=== PATIENT | male | born 1965 | race Caucasian/White ===

== ENCOUNTER 2021-11-14 08:44 | Day surgery (SDC) | payer OTHER, SELFPAY ==
[2021-11-14] VITALS (9 sets, daily range): BP systolic 128–165; BP diastolic 80–95; PULSE 52–75; RESP 15–21; TEMP 36.6–37.1; O2SAT 97–100
[2021-11-14] MEDS: sodium chloride 0.9% 1,000 ML 30 ML IV (09:43)
--- NOTE | 2021-11-14 09:57 | W.PM.OPSUD ---
Surgery/Procedure H&P Update DATE OF PROCEDURE: November 14, 2021 DATE H&P PERFORMED: 11/01/21 PREOP DIAGNOSIS: right inguinal hernia PLANNED PROCEDURE: Operation Date: 11/14/21 10:15 Proposed Procedures p lap right inguinal hernia repair with possible mesh [id number],K40.90(Right) - Ozzie Dorantes DO
[2021-11-14] MEDS: vancomycin 1,000 MG in sodium chloride 0.9% 250 ML 250 MG IV (10:17)
--- NOTE | 2021-11-14 11:30 | PM.OP ---
Operative Report Date of procedure: November 14, 2021 Pre-op diagnosis: Preop Diagnosis right inguinal hernia Post-op diagnosis: same Procedure done: Laparoscopic repair of right inguinal hernia with mesh Implants: Right extra-large 3D Bard mesh Surgeon: Dr. Ozzie Dorantes DO Anesthesia: General Estimated blood loss (mL): 5 Complications: None apparent Brief History: This is a very pleasant 56-year-old gentleman who came into the office with a right inguinal hernia. Repair was indicated. The risks and benefits were explained and documented. Procedure: Patient was wheeled into the operative room and placed on the OR table in a supine position. Abdomen was inspected prepped and draped in usual sterile fashion. Time-out was performed and all present were in agreement. A 15 blade scalpel was used to make 1.2 centimeter incision infraumbilically. Combination of sharp and blunt dissection was performed down to the anterior rectus sheath which was opened sharply. The dissecting balloon was then inserted into the space of Retzius and blown up. We put the camera into the port and identified that we were in the correct space. I then placed 2 5 millimeter trocars suprapubically in the midline. I then used endokitners to bluntly dissect in the space of Retzius out laterally. A direct and indirect inguinal hernia was identified on the right. Blunt dissection was performed to dissect down the hernia sac until the vas deferens dove medially. An extra-large right inguinal mesh was then placed into the space of Retzius. The mesh was unrolled and tacked once medially at the pubic bone. The mesh laid out nicely over the spermatic cord. Photos were taken of the mesh laid out and the hernia sac laid underneath the mesh. I watched the hernia sac remained in place as insufflation was removed. Incisions were closed with 4 O Vicryl in a subcuticular interrupted fashion. Skin glue was applied. Patient tolerated the procedure well.
--- NOTE | 2021-11-14 11:50 | PC.NURSE ---
WHEN I WENT TO REMOVE THE LINDSEY THERE WAS SOME BLOOD IN THE LINDSEY TUBE. I WENT AND NOTIFIED DR. HOLLOWAY. HE CAME TO THE ROOM TO EXAMINE THE PT. WE THEN FLUSHED THE LINDSEY WITH 30ML OF NS AND THE RETURN FLUID WAS CLEAR. HE SAID TO GO AHEAD WITH REMOVING THE LINDSEY.
--- NOTE | 2021-11-14 12:03 | SUR.PHASEI ---
1147 PT TO PACU 5 PT AWAKES TO VOICE, PT REPOSTIONED SELF TO RT SIDE, WARM BLANKETS TO PT X 4 PT MONITOR SR TO SB NO ECTOPY NOTED VSS IV TO LT FA #20 PATENT TO NS 500ML AT KVO RATE PER GRAVITY, ID BRACELET TO LT WRIST PT ID'D WITH 2 IDENTIFIERS. BILAT SCDS ON ABDOMEN SOFT WITH 3 SITES WITH SKIN GLUE. D/I
--- NOTE | 2021-11-14 12:10 | P.PCN_ITS ---
PACU note Narrative: VSS, Good respiratory effort, report to STEAM PLANT OPERATOR Exam: awake
--- NOTE | 2021-11-14 12:10 | PM.PACU ---
PACU note Narrative: VSS, Good respiratory effort, report to LABEL STAMPER Exam: awake
--- NOTE | 2021-11-14 12:47 | ANES.PREANE2 ---
Pre-Anesthetic Assessment Height/Weight: Height 1.85 m Weight 78.018 kg Temp Pulse Resp BP Pulse Ox O2 Del Method O2 Flow Rate 98.2 F 52 L 16 133/80 99 8 11/14/21 12:12 11/14/21 12:27 11/14/21 12:27 11/14/21 12:27 11/14/21 12:27 11/14/21 12:27 11/14/21 11:55 Preop Diagnosis: right inguinal hernia Operation Date: 11/14/21 10:15 Proposed Procedures p lap right inguinal hernia repair with possible mesh [id number],K40.90(Right) - Ozzie Dorantes DO Familial anesthetic complications: none Was Beta Edwin taken within 24 hours: N/A Was Clonidine taken within 24 hours: N/A Last intake: Intake Last Liquid Date 11/13/21 Last Liquid Time 19:00 Last Solid Date 11/13/21 Last Solid Time 19:00 Social No alcohol and No tobacco Exam alert, oriented x 3, clear to auscultation bilaterally and regular rate & rhythm Airway Submandibular: within normal limits Cervical ROM: within normal limits Mallampati: Class II Dentition: full History/ROS No significant history except as noted Anesthetic Plan ASA status: 1 Anesthesia: General Medications/Allergies Home Medications Medication Instructions Recorded Confirmed Last Taken Type hydrocodone 7.5 mg-acetaminophen 1 tab PO Q6H PRN pain #20 tabs 11/14/21 Unknown Rx 325 mg tablet Allergies Allergy/AdvReac Type Severity Reaction Status Date / Time penicillin G Allergy ALGY-Hives Verified 11/14/21 09:05 Current Medications Generic Name Dose Route Start Last Admin Trade Name Freq PRN Reason Stop Dose Admin Sodium Chloride 1,000 mls @ 30 mls/hr 11/14/21 09:00 11/14/21 12:30 Sodium Chloride 0.9% IV 11/15/21 08:59 Infused .Q24H SHA Infusion PFSH Anesthesia Medical History (Updated 11/01/21 @ 14:25 by Ozzie Dorantes DO) Right inguinal hernia Surgical History Hx of hernia repair Social History Smoking and tobacco status: never smoked Data Anesthesia Cardiac Studies: No Data to Display
[2021-11-14] MEDS: HYDROcodone-acetaminophen 7.5-325 mg Tablet 1 TAB PO (12:54)
--- NOTE | 2021-11-14 13:08 | PC.NURSE ---
Educated pt if he is unable to urinate within renée hours he should go to the ED. Pt voiced understanding.
--- NOTE | 2021-11-14 15:54 | ANE.PACU2 ---
Inpatient post-anesthesia follow up: Airway intact: Yes Vital signs: Temperature 98.2 F Pulse Rate 52 Respiratory Rate 16 Blood Pressure 128/88 Pulse Oximetry 99 Oxygen Delivery Me thod Room Air Oxygen Flow Rate 8 Fraction of Inspir ed Oxygen Hydration adequate: Yes Nausea and vomiting: No Pain level: 3 Mental status: Baseline
== END 2021-11-14 13:00 | disposition home or self-care (01) ==
PROVIDERS: Visit Provider Surgery
PROC: (CPT 49650; principal; 2021-11-14 10:15)
DX: K40.90 Unilateral inguinal hernia, without obstruction or gangrene, not specified as recurrent (principal)
CPT/HCPCS: 49650; 51702; C1781; J2405; J2704; J2710; J3010; J3370; J3490; J7030; J7050

== ENCOUNTER 2021-11-14 20:30 | Emergency (ER) | payer OTHER, SELFPAY ==
[2021-11-14 20:32] VITALS: BP 141/87; PULSE 60; RESP 18; TEMP 36.7; O2SAT 98; BMI 23.1
--- NOTE | 2021-11-14 22:32 | ED_ITS ---
HPI - Male Genitourinary General: Chief complaint: Urogenital-Male Stated complaint: Cant urinate Time Seen by Provider: 11/14/21 20:42 Source: patient Mode of arrival: ambulatory Limitations: no limitations History of Present Illness: 56-year-old male who had hernia repair this morning states that he has not been able to urinate since he is went home. He states that he feels like he needs to pee but he is unable to he is having suprapubic pain he rates it a 6 out of 10 denies any fever denies any vomiting or diarrhea. Denies any worsening improving factors Review of Systems Const: Denies: fever(s), chills, body aches or change in appetite Eyes: Denies: blurry vision or eye discomfort ENMT: Denies: throat pain or dental pain Card: Denies: chest pain Resp: Denies: dyspnea GI: Reports: abdominal pain : Reports: difficulty urinating Musc: Denies: neck pain or back pain Skin/Breast: Denies: rash Neuro: Denies: headache(s) Psych: Denies: depression [place]/Lymph: Denies: easy bruising All/Imm: Denies: urticaria PFSH ED PFSH: Medical History Right inguinal hernia Surgical History Hx of hernia repair Social History Smoking and tobacco status: never smoked Physical Exam Const: COMMON NORMALS: no acute distress, patient oriented x3 and healthy appearing HENMT: COMMON NORMALS: normocephalic and atraumatic HEAD & SCALP: normocephalic and atraumatic Eye: COMMON NORMALS: Equal, round and reactive pupils present and EOMs intact bilaterally PUPIL: Yes Equal, round and reactive pupils present Neck/C-Spine: COMMON NORMALS: full ROM and supple Chest: COMMONS NORMALS: normal inspection of the chest Resp: COMMON NORMALS: normal respiratory effort Cardio: COMMON NORMALS: regular rate, regular rhythm and No murmurs present (Cardio) RATE: regular rate RHYTHM: regular rhythm GI: COMMON NORMALS: Soft to palpation, non-tender and no masses PALPATION: Yes Soft to palpation OTHER: Abdominal incisions are clean dry and intact he does have suprapubic tenderness Extremity: COMMON NORMALS: normal to inspection and full ROM Neuro: COMMON NORMALS: patient oriented x3, moves all extremities and no focal motor deficits Psych: COMMON NORMALS: mental status grossly normal, Normal thought process present and cooperative THOUGHT PROCESS: Normal thought process present Skin: COMMON NORMALS: no rashes or lesions noted and no wounds GENERAL SKIN EXAM: no rashes or lesions noted Course Vital Signs: Vital signs: Vital Signs Temperature 98.1 F 11/14/21 20:32 Pulse Rate 66 11/14/21 22:33 Respiratory Rate 17 11/14/21 22:33 Blood Pressure 130/87 11/14/21 22:33 Pulse Oximetry 96 11/14/21 22:33 Oxygen Delivery Me thod 11/14/21 22:33 MDM - Male Medical Decision Making Patient presents here with urinary retention he feels much improved after Tovar was placed we will get him follow-up with urology he is return if worsening we will discharge him with a leg bag Lab Data Laboratory Results Urine Color Yellow (Yellow) 11/14/21 22:38 Urine Appearance Clear (CLEAR) 11/14/21 22:38 Urine pH 6 (5-7) 11/14/21 22:38 Ur Specific Carmen 1.020 (1.005-1.030) 11/14/21 22:38 Urine Protein Trace (Negative) 11/14/21 22:38 Urine Glucose (UA) 1+ (Normal) H 11/14/21 22:38 Urine Ketones Trace (Negative) H 11/14/21 22:38 Urine Blood 3+ (Negative) H 11/14/21 22:38 Urine Nitrate Negative (Negative) 11/14/21 22:38 Urine Bilirubin Neg (Negative) 11/14/21 22:38 Urine Urobilinogen Norm mg/dL (Negative) 11/14/21 22:38 Ur Leukocyte Esterase Negative (Negative) 11/14/21 22:38 Urine RBC Too numerous to cnt /hpf (0-2) H 11/14/21 22:38 Urine WBC 0-4 /hpf (0-5) H 11/14/21 22:38 Ur Squamous Epith Cells 0-4 /hpf (0-5) H 11/14/21 22:38 Amorphous Sediment 1+ /hpf 11/14/21 22:38 Discharge Plan Discharge Patient Disposition: Home Clinical Impression: Acute urinary retention Condition: Stable Prescriptions: No Action hydrocodone-acetaminophen 7.5-325 mg tablet 1 tab PO Q6H PRN (Reason: pain) Qty: 20 0RF Discharge Orders: Discharge ED (Routine); Ordered 11/14/21 Ordered By: Fransisca Weldon Referrals: Brian Allen MD [Physician] - 1-3 days Discharge Diet: Advance as tolerated Discharge Activity: Resume usual activity Patient Instructions: Urinary Retention in Men (ED), Tovar Catheter Placement and Care (ED) Coding Level of Care Code ED Freezer Laboratory Technician for Chg Fwd Exam Comprehensive
[2021-11-14 22:33] VITALS: BP 130/87; PULSE 66; RESP 17; O2SAT 96
[2021-11-14 22:49] LABS: Add Urine Microscopic? YES; Bilirubin Urine Neg (Negative); Blood Urine 3+ (Negative); Glucose Urine UA 1+ (Normal); Ketones Urine Trace (Negative); Leukocyte Esterase Urine Negative (Negative); Nitrate Urine Negative (Negative); Protein Urine Trace (Negative); Urine Appearance Clear (CLEAR); Urine Color Yellow (Yellow); Urobilinogen Urine Norm (Negative); pH Urine 6 (5-7)
[2021-11-14 22:50] LABS: Add Urine Culture? No; Amorphous Sediment Urine 1+ /hpf; RBC Urine TOO NUMEROUS TO CNT /hpf (0-2); Squamous Epithelial Cell Urine 0-4 /hpf (0-5); WBC Urine 0-4 /hpf (0-5)
[2021-11-14 23:07] LABS: Mucus Urine 1+ /hpf
[2021-11-14 23:12] VITALS: BP 120/78; PULSE 67; RESP 17; O2SAT 99
--- NOTE | 2021-11-15 12:20 | DCPLANNER ---
Addendum entered by Johanne Mitchell 02/08/22 11:12: Patient had a follow up appointment scheduled with urology - patient did attend appointment. Addendum entered by Johanne Mitchell 11/16/21 12:24: Patient has a follow up appointment scheduled for Sunday, November 30, 2021 at 8:00 with Joan Metcalf at urology. Clinic will call patient with appointment information. Original Note: sales service route manager had message to schedule a follow up appointment for patient with urology. sales service route manager sent patients information to the front office staff at urology. Patients information will be printed and reviewed. Clinic will call patient with appointment information.
== END 2021-11-14 23:13 | disposition home or self-care (01) ==
PROVIDERS: Emergency Provider Emergency Medicine
DX: R33.9 Retention of urine, unspecified (principal)
CPT/HCPCS: 51702; 81001; 99283

== ENCOUNTER → 2021-11-30 08:10 | Outpatient (BNVA) | payer OTHER, SELFPAY | PROVIDERS: Visit Provider Nurse Practitioner Family | DX: R33.8 Other retention of urine (principal); Z12.5 Encounter for screening for malignant neoplasm of prostate | CPT/HCPCS: 81003 ==